=== PATIENT | male | born 1995 | race Caucasian/White ===

== ENCOUNTER 2021-05-06 16:10 | Emergency (ER) | payer MEDICAID ==
[~2021-05-06] VITALS: Ht 170.2 cm; Wt 154.2 kg
[2021-05-06] MEDS ORDERED: CELEXA 20 MG TA20 MG PO (16:37)
[2021-05-06] MEDS ORDERED: CIPRODEX OTIC7.5 ML OTIC (17:02)
[2021-05-06 17:09] VITALS: BP 129/91
== END 2021-05-06 17:10 | disposition home or self-care (01) ==
LOC: M.ERS 16:10
DX: H60.91 Unspecified otitis externa, right ear (principal); F41.9 Anxiety disorder, unspecified; Z79.899 Other long term (current) drug therapy